=== PATIENT | female | born 1960 | race Caucasian/White ===

== ENCOUNTER 2025-04-05 10:00 | Emergency (ER) | payer MEDICARE, SELFPAY ==
[2025-04-05 10:04] VITALS: BP 133/87; PULSE 69; TEMP 36.7; O2SAT 100; BMI 31.1
--- NOTE | 2025-04-05 10:13 | XR_ITS ---
The [address] [address] Patient Name: CORRINA GUPTA MRN: [id number] date: 1960 Sex: F Assigned Patient Location: ER Current Patient Location: ER Accession/Order Number: [id number] Exam Date: 04/05/2025 10:30 Report Date: 04/05/2025 10:49 At the request of: GEOVANNA HENSLEY MD Procedure: XR wrist LT min 3V XR hand LT min 3V, XR wrist LT min 3V 04/05/2025 10:41 AM SIGNS AND SYMPTOMS: Left fifth metacarpal and distal arm pain, popping sensation PROTOCOL: Frontal, lateral, and oblique radiographs of the left hand and left wrist COMPARISON: None FINDINGS: Left hand: There is ulnar deviation of the third through fifth digits. There is narrowing of the interphalangeal joints greatest in the second digit. There is narrowing of the first carpometacarpal junction. There is no fracture or dislocation. No significant soft tissue swelling. Left wrist: The radiocarpal joint is grossly preserved. There is no fracture or dislocation. Degenerative changes are noted at the base of the thumb. No significant soft tissue swelling. XR/XR wrist LT min 3V IMPRESSION: Left hand: No fracture or dislocation. Mild ulnar deviation is noted in the third through fifth digits. Scattered degenerative changes are noted as above. Left wrist: No fracture. Impression dictated by: Cristo Lowe M.D. 04/05/2025 10:49 AM Dictation Location: [place] [address] Electronically authenticated by: [id number] Y Date: 04/05/2025 10:49
--- NOTE | 2025-04-05 10:15 | XR_ITS ---
The [address] [address] Patient Name: CORRINA GUPTA MRN: [id number] date: 1960 Sex: F Assigned Patient Location: ER Current Patient Location: ER Accession/Order Number: [id number] Exam Date: 04/05/2025 10:30 Report Date: 04/05/2025 10:49 At the request of: GEOVANNA HENSLEY MD Procedure: XR wrist LT min 3V XR hand LT min 3V, XR wrist LT min 3V 04/05/2025 10:41 AM SIGNS AND SYMPTOMS: Left fifth metacarpal and distal arm pain, popping sensation PROTOCOL: Frontal, lateral, and oblique radiographs of the left hand and left wrist COMPARISON: None FINDINGS: Left hand: There is ulnar deviation of the third through fifth digits. There is narrowing of the interphalangeal joints greatest in the second digit. There is narrowing of the first carpometacarpal junction. There is no fracture or dislocation. No significant soft tissue swelling. Left wrist: The radiocarpal joint is grossly preserved. There is no fracture or dislocation. Degenerative changes are noted at the base of the thumb. No significant soft tissue swelling. XR/XR hand LT min 3V IMPRESSION: Left hand: No fracture or dislocation. Mild ulnar deviation is noted in the third through fifth digits. Scattered degenerative changes are noted as above. Left wrist: No fracture. Impression dictated by: Cristo Lowe M.D. 04/05/2025 10:49 AM Dictation Location: [place] [address] Electronically authenticated by: [id number] Y Date: 04/05/2025 10:49
[2025-04-05] MEDS: KETOROLAC TROMETHAMINE 30 MG/ML VIAL IM (10:35)
--- NOTE | 2025-04-05 11:01 | ED.UPPEXIN1 ---
HPI HPI - Extremity Injury (Upper) General Chief Complaint: Extremity Injury, Upper Stated Complaint: L WRIST PAIN Time Seen by Provider: 04/05/25 10:11 Source: patient Mode of arrival: walk-in History of Present Illness HPI narrative: The patient is a 64-year-old female is coming today with a left hand pain that started after she lifted her grandkids yesterday, she mentioned that she felt like she had a pop in her left wrist and she noted that she has been having pain since then. No other concerns no fall or trauma Related Data Home Medications ?Medication ?Instructions ?Recorded ?Confirmed cladribine(multiple sclerosis) 10 10 mg PO DAILY 04/05/25 04/05/25 mg tablet (Mavenclad (8 tablet pack)) levothyroxine 50 mcg tablet 50 mcg PO DAILY 04/05/25 04/05/25 (Synthroid) Previous Rx's ?Medication ?Instructions ?Recorded diclofenac sodium 50 mg 50 mg PO Q12H PRN pain #14 tabs 04/05/25 tablet,delayed release Allergies Allergy/AdvReac Type Severity Reaction Status Date / Time morphine Allergy Severe Hives Verified 04/05/25 10:09 Penicillins Allergy Severe Hives Verified 04/05/25 10:09 Review of Systems ROS Status of ROS 10 or more systems reviewed and unremarkable except as noted in history and below PFSH PFSH Social History Little interest or pleasure in doing things: not at all Feeling down, depressed, or hopeless: not at all Exam Narrative Exam Narrative: Nurses notes and vital signs reviewed and patient is not hypoxic. General: Well-appearing and in no apparent distress. Skin: Warm, dry, no pallor noted. Left upper extremity; there is tenderness upon palpation of the lateral aspect of the wrist mostly toward the ulnar styloid The patient have a good radial pulse and no vascular injury detected there is also tenderness on palpation of the fifth metacarpal bone no ecchymosis or open wound Constitutional Vital Signs, click to edit/add: Last Vital Signs Temp 98.1 F 04/05/25 10:04 Pulse 69 04/05/25 10:04 Resp 18 04/05/25 10:04 BP 133/87 04/05/25 10:04 Pulse Ox 100 04/05/25 10:04 O2 Del Method Room Air 04/05/25 10:04 Course Vital Signs Vital signs: Vital Signs Temperature 98.1 F 04/05/25 10:04 Pulse Rate 69 04/05/25 10:04 Respiratory Rate 18 04/05/25 10:04 Blood Pressure 133/87 04/05/25 10:04 Pulse Oximetry 100 04/05/25 10:04 Oxygen Delivery Method Room Air 04/05/25 10:04 Temperature 98.1 F 04/05/25 10:04 Pulse Rate 69 04/05/25 10:04 Respiratory Rate 18 04/05/25 10:04 Blood Pressure 133/87 04/05/25 10:04 Pulse Oximetry 100 04/05/25 10:04 Oxygen Delivery Method Room Air 04/05/25 10:04 MDM - Extremity Injury (Upper) MDM Narrative Medical decision making narrative: X-ray of the left hand as well as x-ray of the wrist showed no acute pathology The patient was provided Toradol in the ER discharged home with Voltaren as well as a wrist splint Patient instructed to rest her left hand and wrist and follow-up with her primary care as outpatient The patient is to follow up with primary care physician in next 2-3 days or to return to the emergency department should any of the signs or symptoms worsen or new symptoms develop. The patient agrees with the following Diagnosis and Treatment plan and the patient will be discharged home. Discharge Plan Discharge Chief Complaint: Extremity Injury, Upper Clinical Impression: Sprain and strain of wrist, Tendonitis Patient Disposition: Home, Self-Care Time of Disposition Decision: 11:00 Condition: Good Prescriptions / Home Meds: New diclofenac sodium 50 mg tablet,delayed release (DR/EC) 50 mg PO Q12H PRN (Reason: pain) Qty: 14 0RF No Action levothyroxine [Synthroid] 50 mcg tablet 50 mcg PO DAILY Mavenclad (8 tablet pack) 10 mg tablet 10 mg PO DAILY Print Language: [place] Zealander Instructions: Sprain (ED), Wrist Sprain (ED) Referrals: RHIANNA PITTMAN [Primary Care Provider, Family Practice] - 1 week Discharge Date/Time: 04/05/25 11:29
== END 2025-04-05 11:29 | disposition home or self-care (01) ==
PROVIDERS: Emergency Provider Emergency Medicine; PCP Family Medicine
DX: S63.502A Unspecified sprain of left wrist, initial encounter (principal); S66.912A Strain of unspecified muscle, fascia and tendon at wrist and hand level, left hand, initial encounter; M77.8 Other enthesopathies, not elsewhere classified; X50.9XXA Other and unspecified overexertion or strenuous movements or postures, initial encounter
CPT/HCPCS: 73110; 73130; 96372; 99284; J1885